=== PATIENT | female | born 1995 | race Caucasian/White ===

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

== ENCOUNTER 2018-09-30 01:08 | Emergency (ER) | payer OTHER ==
[~2018-09-30] VITALS: Ht 167.6 cm; Wt 58.5 kg
[~2018-09-30 01:08] MED LIST changes: +ACET500C5 PO; -BALANCED SALT SOLN 15 ML OPH IRRIG ONE; -CEFAZOLIN 1 GM INJ ONE; -DICLOFENAC 0.1% 2.5 ML OPH OPER SCH; +IBUP-1542 PO; -LIDOCAINE 3.5% GEL TUBE OPER ONE; -MOXIFLOXACIN 0.5% 3 ML OPH OPER SCH; -TETRACAINE 0.5% 4 ML OPH OPER SCH
[2018-09-30 01:14] VITALS: Ht 167.6 cm; Wt 58.5 kg
[2018-09-30] MEDS ORDERED: KETOROLAC 30 MG INJ IM STA (02:00)
[2018-09-30] MEDS ORDERED: ACETAMINOPHEN 500 MG TAB PO STA (02:45)
[2018-09-30 02:55] VITALS: BP 117/56; PULSE 76; RESP 17
== END 2018-09-30 02:55 | disposition home or self-care (01) ==
LOC: FTE 01:08
DX: G43.909 Migraine, unspecified, not intractable, without status migrainosus (principal)
CPT/HCPCS: 99284